=== PATIENT | female | born 1980 | race Caucasian/White ===

== ENCOUNTER 2019-08-19 14:25 | Inpatient (IN) ==
[2019-08-19] MEDS ORDERED: ZOFRAN IV ONE (14:37)
[2019-08-19] MEDS ORDERED: DILAUDID IV ONE ×3 (14:37→16:08)
[2019-08-19] MEDS ORDERED: NS 1,000 ML IV ONE (14:37)
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
--- NOTE | 2019-08-19 15:18 | Diag Imaging Result Doc PS360 ---
EXAM: ANKLE COMPLETE RIGHT HISTORY: fall TECHNIQUE: Three views COMPARISON: None. FINDINGS: The foot is in a lateral projection in relation to its normal alignment at the ankle. No fracture to the distal tibia. The talus is anterior to the calcaneus rather than above it. Possible small bone fragment from the lateral malleolus. Electronically signed by Vazquez Joshi 08/19/2019 3:16 PM
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
[2019-08-19 15:41] LABS: BASO# 0.01 X1000 (0.0-0.2); BASO% 0.1 % (0.0-0.8); EOS# 0.03 X1000 (0.0-0.7); EOS% 0.2 % (0.0-10.0); HEMOGLOBIN 15.8 g/dL (12.0-16.0); IMM GRAN# 0.03 X1000 (0.0-0.04); IMM GRAN% 0.2 % (0.0-0.5); LYMPH# 2.86 X1000 (1.2-3.4); LYMPH% 19.3 % (20.5-51.1); MCH 30.2 PG (27-31); MCHC 32.9 g/dL (33-37); MCV 91.8 FL (81-99); MONO# 0.65 X1000 (0.11-0.59); MONO% 4.4 % (1.7-9.3); MPV 10.1 FL (7.4-10.4); NEUT# 11.26 X1000 (1.4-6.5); NEUT% 75.8 % (42.2-75.2); PLT 244 X1000 (130-400); RBC 5.23 XMIL (4.2-5.4); RDW 11.9 % (11.5-14.5); WBC 14.84 X1000 (4.8-10.8)
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
[2019-08-19 15:54] LABS: AGAP 12; ALB/GLOB RATIO 1.5; ALBUMIN 4.3 g/dL (3.5-5.0); ALKALINE PHOSPHATASE 79 U/L (32-104); BUN 14 mg/dL (8-22); CALCIUM 9.7 mg/dL (8.8-10.2); CHLORIDE 106 mmol/L (98-107); COSMO 281; CREATININE 0.5 mg/dL (0.5-0.9); ESTIMATED GFR > 60; GLUCOSE 120 mg/dL (70-104); GOT 17 U/L (10-30); GPT 15 U/L (10-36); LIPASE 23 U/L (13-60); POTASSIUM 4.2 mmol/L (3.5-5.1); SODIUM 140 mmol/L (136-145); TCO2 22 mmol/L (25-35); TOTAL BILIRUBIN 0.34 mg/dL (0.20-1.00); TOTAL PROTEIN 7.1 g/dL (6.3-8.3)
[2019-08-19] MEDS ORDERED: ATIVAN IV ONE (15:56)
[2019-08-19] MEDS ORDERED: ZOSYN 3.375 GM in NS 50 ML IV ONE (15:56)
[2019-08-19] MEDS ORDERED: KEFZOL 2 GM/D5W 2 GM/50 ML IVPB IV ONE (15:58)
[2019-08-19] MEDS ORDERED: POTASSIUM CHLORIDE 40 MEQ/SWI 40 MEQ/100 ML IVPB IV ONE (16:06)
[2019-08-19] MEDS ORDERED: ROCEPHIN 1 GM in NS 50 ML IV ONE (16:10)
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
[2019-08-19] MEDS ORDERED: DIPRIVAN 1% ONE (16:52)
[2019-08-19] MEDS ORDERED: XYLOCAINE-MPF 2% ONE (16:53)
[2019-08-19] MEDS ORDERED: QUELICIN (DOSE) ONE (16:55)
[2019-08-19] MEDS ORDERED: FENTANYL ONE ×2 (16:56→17:52)
[2019-08-19] MEDS ORDERED: VERSED ONE ×2 (16:57→17:27)
[2019-08-19 17:07] LABS: URINE SOURCE CLEAN CATCH
[2019-08-19 17:11] LABS: BILIRUBIN URINE NEGATIVE (NEGATIVE); BLOOD URINE NEGATIVE (NEGATIVE); COLOR YELLOW; GLUCOSE URINE NEGATIVE (NEGATIVE); KETONE URINE NEGATIVE (NEGATIVE); LEUKOCYTES URINE NEGATIVE (NEGATIVE); NITRITE URINE NEGATIVE (NEGATIVE); PROTEIN URINE 30 mg/dL (NEGATIVE); SP GRAVITY URINE 1.028; TURBIDITY URINE CLEAR (CLEAR); UROBILINOGEN URINE NORMAL (NORMAL)
[2019-08-19 17:12] LABS: UR EPITHELIAL CELLS <10 /HPF (<10); URINE BACTERIA NEGATIVE /HPF; URINE RBC <10 /HPF (<10); URINE WBC <10 /HPF (<10)
[2019-08-19] MEDS ORDERED: BOOSTRIX VACCINE IM ONE (17:16)
[2019-08-19] MEDS ORDERED: TRANSDERM-SCOP ONE (17:27)
[2019-08-19 17:30] LABS: UR AMPHETAMINES QUAL NONE DETECTED (NONE DETECT); UR BARBITUATES QUAL NONE DETECTED (NONE DETECT); UR BENZODIAZEPIN QUAL NONE DETECTED (NONE DETECT); UR CANNABINOIDS QUAL NONE DETECTED (NONE DETECT); UR COCAINE QUAL NONE DETECTED (NONE DETECT); UR METHADONE QUAL NONE DETECTED (NONE DETECT); UR OPIATES QUAL PRESUMPTIVE POSITIVE (NONE DETECT); UR OXYCODONE QUAL NONE DETECTED (NONE DETECT); UR PCP QUAL NONE DETECTED (NONE DETECT)
[2019-08-19] MEDS ORDERED: OXY IR PO PRN (19:01)
[2019-08-19] MEDS ORDERED: SENOKOT PO PRN (19:01)
[2019-08-19] MEDS ORDERED: ZOFRAN IV PRN (19:01)
[2019-08-19] MEDS ORDERED: GENTAMICIN IV PER PHARMACY MISC SCH (19:15)
[2019-08-19] MEDS ORDERED: DEMEROL ONE (19:27)
[2019-08-19] MEDS ORDERED: NS 1,000 ML ONE (19:28)
[2019-08-19] MEDS: DILAUDID ONE ×2 (19:37→19:47)
--- NOTE | 2019-08-19 20:58 | Diag Imaging Result Doc PS360 ---
EXAM: CT EXT LOWER LEFT W/O CON 08/19/2019 HISTORY: subtalar dislocation TECHNIQUE: This exam was performed using automated exposure control, adjustment of mA or kV according to patient size, and/or use of iterative reconstruction technique. 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 There are some small osseous fragment seen anterior to the distal fibula there is a fracture distally with multiple small fragments as well as apparent fragments from the adjacent calcaneus and talus laterally. There is a fair amount of soft tissue gas present dorsally adjacent to the talar navicular joint and on the plantar aspect of the cuneiforms and dorsal and plantar to the proximal metatarsals. The dislocation of the subtalar joint which was demonstrated on the plain radiographs at 1455 has been reduced. IMPRESSION: Reduction of the subtalar joint dislocation with small fracture fragments from the distal fibula and adjacent talus and calcaneus. Electronically signed by Santos Vega 08/19/2019 8:55 PM
[2019-08-19] MEDS ORDERED: NS IV SCH (22:00)
[2019-08-19] MEDS ORDERED: GENTAMICIN IV SCH (22:00)
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
[2019-08-20] MEDS: NICODERM PATCH TD SCH ×2 (00:03→08:37)
[2019-08-20] MEDS: DILAUDID IV PRN ×7 (00:03→21:55)
[2019-08-20 00:30] LABS: URINE SOURCE CATH
[2019-08-20 00:40] LABS: BILIRUBIN URINE NEGATIVE (NEGATIVE); BLOOD URINE NEGATIVE (NEGATIVE); COLOR STRAW; GLUCOSE URINE NEGATIVE (NEGATIVE); KETONE URINE NEGATIVE (NEGATIVE); LEUKOCYTES URINE NEGATIVE (NEGATIVE); NITRITE URINE NEGATIVE (NEGATIVE); PH URINE 6.5; PROTEIN URINE NEGATIVE (NEGATIVE); SP GRAVITY URINE 1.006; TURBIDITY URINE CLEAR (CLEAR); UR EPITHELIAL CELLS <10 /HPF (<10); URINE BACTERIA NEGATIVE /HPF; URINE RBC <10 /HPF (<10); URINE WBC <10 /HPF (<10); UROBILINOGEN URINE NORMAL (NORMAL)
[2019-08-20] MEDS: KEFZOL 1 GM/D5W 1 GM/50 ML IVPB IV SCH ×3 (03:56→21:50)
[2019-08-20] MEDS: LOVENOX SUBQ SCH (05:37)
--- NOTE | 2019-08-20 08:24 | ORTHOPAEDICS PROGRESS NOTE ---
DATE: 08/20/2019 SUBJECTIVE: Ms. Aguilar is lying in bed this morning. Pain is fairly well controlled. OBJECTIVE: Right lower extremity exam, splint is clean, dry, and intact. She can move her toes in dorsiflexion and plantar flexion. She has good sensation to light touch to the toes. Good capillary refill to the toes. ASSESSMENT: Status post right irrigation and debridement of foot for open subtalar dislocation and open reduction and deltoid repair. PLAN: I discussed with Ms. Aguilar about finishing up her IV antibiotics for today. I am going to get [facility] involved for possible rehab placement. She has had surgery on the left foot within the past year and is still making a recovery from that and has not been able to be up and on it for long periods of time and now that she has injured the right side, it is going to be extremely difficult for her to mobilize and take care of herself at home and I want [facility] to evaluate for possible rehab placement versus home health needing to come out to the house. She will finish out her IV antibiotics today and will send her home with p.o. antibiotics unless she stays for rehab placement. cc: Gerardo Arana MD
[2019-08-20] MEDS: NS 1,000 ML IV SCH ×3 (08:37→23:08)
[2019-08-20] MEDS: NORCO-7.5 PO PRN ×3 (10:12→20:09)
[2019-08-21] MEDS: NS IV SCH (00:07)
[2019-08-21] MEDS: NORCO-7.5 PO PRN ×5 (00:07→21:48)
[2019-08-21] MEDS: GENTAMICIN IV SCH (00:07)
[2019-08-21] MEDS: DILAUDID IV PRN ×4 (03:05→13:02)
[2019-08-21] MEDS: LOVENOX SUBQ SCH (05:53)
[2019-08-21] MEDS: NICODERM PATCH TD SCH (08:01)
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
[2019-08-21] MEDS: NS 1,000 ML IV SCH (13:00)
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
[2019-08-21] MEDS: DEMEROL IV PRN ×2 (16:26→20:30)
[2019-08-22] MEDS: NS IV SCH (00:24)
[2019-08-22] MEDS: GENTAMICIN IV SCH (00:24)
[2019-08-22] MEDS: DEMEROL IV PRN ×5 (00:25→14:00)
[2019-08-22] MEDS: NORCO-7.5 PO PRN ×3 (01:49→12:42)
[2019-08-22] MEDS: NS 1,000 ML IV SCH ×2 (03:26→12:44)
[2019-08-22] MEDS: LOVENOX SUBQ SCH (05:54)
[2019-08-22] MEDS: NICODERM PATCH TD SCH (08:33)
[2019-08-22 11:30] VITALS: BP 137/89
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
== END 2019-08-22 14:30 | DRG 502 ==
LOC: SUPCPDRO → ED 14:25 → SURHOLD 18:02 → 4N 21:15
PROVIDERS: ADMIT Orthopaedic Surgery; ATTEND Orthopaedic Surgery